=== PATIENT | male | born 1960 | race Caucasian/White ===

== ENCOUNTER 2023-03-29 08:00 | Outpatient (CLI) | payer OTHER ==
--- NOTE | 2023-03-29 14:21 | XRAY Report ---
PROCEDURE: Shoulder 3 View RT INDICATIONS: RIGHT SHOULDER PAIN TECHNIQUE: 4 views of the shoulder were acquired. COMPARISON: None. FINDINGS: Bones: No fractures or dislocations. Mild degenerative changes of the acromioclavicular and glenohum eral joints. No suspicious bony lesions. Visualized ribs appear intact. Soft tissues: No suspicious soft tissue calcifications. The visualized lungs are within normal limi ts. IMPRESSION: No acute bony abnormality. Mild degenerative changes of the acromioclavicular and glenohumeral joints . Reviewed by: Jaylan Hamm MD on 03/29/2023 2:19 PM PST Approved by: Jaylan Hamm MD on 03/29/2023 2:19 PM PST Station ID: [id number]
== END 2023-03-29 23:59 | disposition home or self-care (01) ==
LOC: DI.WOS 08:00
PROVIDERS: ATTEND Orthopaedic Surgery
DX: M19.011 Primary osteoarthritis, right shoulder (principal)